=== PATIENT | female | born 1980 | race Caucasian/White ===

== ENCOUNTER 2018-10-05 18:01 | Emergency (ER) | payer OTHER ==
[2018-10-05 18:13] VITALS: BP 115/81; PULSE 98; RESP 18; TEMP 98.6; O2SAT 97
--- NOTE | 2018-10-05 19:44 | C.PDOC ---
History Of Present Illness Patient is a 38 year old female who presents to the Ed c/o nausea and vomiting with an associated sore throat that began yesterday. Patient has been able to tolerate water and crackers today and notes that her sister also has a sore throat. She denies any diarrhea or abdominal pain. Time Seen by Provider: 10/05/18 18:37 Chief Complaint (Nursing): Flu-like Symptoms History Per: Patient History/Exam Limitations: no limitations Onset/Duration Of Symptoms: Days (1) Current Symptoms Are (Timing): Still Present Associated Symptoms: Sore Throat, Nausea, Vomiting. denies: Diarrhea Recent travel outside of the [place]: No Additional History Per: Patient Past Medical History Reviewed: Historical Data, Nursing Documentation, Vital Signs Vital Signs: Last Vital Signs Temp 98.6 F 10/05/18 18:10 Pulse 98 H 10/05/18 18:10 Resp 18 10/05/18 18:10 BP 115/81 10/05/18 18:10 Pulse Ox 97 10/05/18 18:10 - Medical History PMH: No Chronic Diseases Surgical History: No Surg Hx Family History: States: Unknown Family Hx - Social History Hx Tobacco Use: No Hx Alcohol Use: No Hx Substance Use: No - Immunization History Hx Tetanus Toxoid Vaccination: No Hx Influenza Vaccination: No Hx Pneumococcal Vaccination: No Review Of Systems ENT: Positive for: Throat Pain. Negative for: Ear Pain Respiratory: Negative for: Cough Gastrointestinal: Positive for: Nausea, Vomiting. Negative for: Abdominal Pain, Diarrhea Physical Exam - Physical Exam Appears: Non-toxic, No Acute Distress Skin: Normal Color, Warm, Dry Head: Atraumatic, Normacephalic Ear(s): Bilateral: Normal Oral Mucosa: Moist Throat: Erythema (erythematous throat with enlarged tonsils ), No Exudate Cardiovascular: Rhythm Regular, No Murmur Respiratory: Normal Breath Sounds, No Rales, No Rhonchi, No Wheezing Gastrointestinal/Abdominal: Soft, No Tenderness Neurological/Psych: Oriented x3, Normal Speech, Normal Cognition ED Course And Treatment O2 Sat by Pulse Oximetry: 97 (on RA) Pulse Ox Interpretation: Normal Medical Decision Making Medical Decision Making: Plan: Zofran 4 mg PO Serology Rapid Strep Strep positive Disposition Counseled Patient/Family Regarding: Studies Performed, Diagnosis, Need For Followup, Rx Given - Disposition Referrals: Ney Chicas MD [Staff Provider] - Disposition: HOME/ ROUTINE Disposition Time: 19:47 Condition: GOOD Additional Instructions: Gargle with warm salty water several times a day. Tylenol or Motrin for pain. Take antibiotics until completed. Prescriptions: Amoxicillin [Amoxil 500 mg Cap] 500 mg PO BID #20 cap Instructions: Strep Throat (DC) Forms: [facility] (Sinhala), General Discharge Instructions - Clinical Impression Clinical Impression: Strep pharyngitis - PA / [employer] / Resident Statement MD/DO has examined the patient and agrees with the treatment plan. - Scribe Statement The provider has reviewed the documentation as recorded by the Sallieibnohemy Garcia All medical record entries made by the Sallieibnohemy were at my direction and personally dictated by me. I have reviewed the chart and agree that the record accurately reflects my personal performance of the history, physical exam, medical decision making, and the department course for this patient. I have also personally directed, reviewed, and agree with the discharge instructions and disposition.
[2018-10-05] MEDS ORDERED: Amoxicillin-Clav 500-125 mg Tab PO ONE (19:55)
== END 2018-10-05 19:59 | disposition home or self-care (01) ==
LOC: C.ER 18:01
DX: J02.0 Streptococcal pharyngitis (principal)